=== PATIENT | female | born 1950 | race Two or more races ===

== ENCOUNTER 2018-01-06 08:32 | Outpatient (CLI) | payer OTHER ==
[~2018-01-06] VITALS: Ht 152.4 cm; Wt 56.2 kg
[2018-01-06] MEDS ORDERED: LIPO-FLAVONOID1 EACH PO (11:01)
== END 2018-01-06 08:45 | disposition home or self-care (01) ==
LOC: OFIC 805 08:32
DX: J31.0 Chronic rhinitis (principal); R22.1 Localized swelling, mass and lump, neck; R42 Dizziness and giddiness

== ENCOUNTER 2018-01-13 07:32 | Outpatient (CLI) | payer OTHER ==
[~2018-01-13] VITALS: Ht 152.4 cm; Wt 56.2 kg
[~2018-01-13 07:32] MED LIST: LIPO-FLAVONOID1 EACH PO
== END 2018-01-13 07:50 | disposition home or self-care (01) ==
LOC: OFIC 805 07:32
DX: H81.11 Benign paroxysmal vertigo, right ear (principal); J31.0 Chronic rhinitis; K11.21 Acute sialoadenitis